=== PATIENT | female | born 1960 | race Caucasian/White ===

== ENCOUNTER 2016-11-17 14:09 | Observation (INO) ==
[2016-11-17] MEDS ORDERED: 0.9 % Sodium Chloride 1,000 ML IVC ONE (14:25)
--- NOTE | 2016-11-17 14:27 | Emergency Department Note ---
Disposition Clinical Impression: Nausea and vomiting in adult, Tachycardia, Metabolic acidosis with respiratory acidosis Disposition: Admitted As Inpatient Condition: Fair Referrals: Jamila Dowd, [employer] [Primary Care Provider] - Forms: ED Satisfaction Letter Time of Disposition: 19:26 ([facility]) Nausea/Vomiting/Diarrhea HPI - General Chief complaint: ED Nausea/Vomiting/Diarrhea Stated complaint: nausea, dizziness Time Seen by Provider: 11/17/16 14:21 Source: patient Mode of arrival: ambulatory Limitations: no limitations Nursing Notes Reviewed: Yes Vital Signs Reviewed: Yes - History of Present Illness HPI Narrative: She is having abdominal pain patient states that she has been unable to urinate she has drank at least 6-8 bottles of water today and unable to urinate except for just a few dribbles she denies any blurred vision double vision states that she is currently being monitored by her family physician for liver disease check her labs regularly she denies any fevers or chills states that she just tired feels that she is breathing 100 miles a minute states that she has had no calf pain or tenderness no rash lesions no swelling no edema in the legs just is very difficult to describe how she feels Pt Subjective Complaint: nausea, vomiting, abdominal pain Onset (ago): day(s) Associated Abdominal Pain: Yes If pain, Location of pain: diffuse Severity: moderate Severity scale (1-10): 5 Quality: cramping Consistency: constant Improves with: nothing Worsens with: nonthing Associated symptoms: Reports: myalgias, loss of appetite, malaise, nausea/ vomiting, dysuria, shortness of breath, weakness. Denies: chest pain, cough, diaphoresis, fever/chills, headaches, rash, syncope - Related Data Home Medications Medication Instructions Recorded Confirmed Multivitamin with Minerals 1 each PO DAILY 11/22/15 11/17/16 [Myvitalife] Allergies Allergy/AdvReac Type Severity Reaction Status Date / Time No Known Allergies Allergy Verified 11/22/15 08:27 All systems ED: reviewed and negative except as stated. Constitutional: Reports: weakness. Denies: fever, chills Eyes: Denies: eye pain, eye discharge ENT ED: Denies: ear pain, throat pain, dental pain Cardiovascular: Denies: chest pain, palpitations Respiratory: Reports: dyspnea. Denies: cough Gastrointestinal: Reports: abdominal pain, nausea, vomiting Genitourinary: Reports: urgency, frequency. Denies: dysuria, dyspareunia Musculoskeletal: Denies: back pain, neck pain, joint swelling Integumentary: Denies: rash Neurological: Denies: headache Psychiatric: Reports: anxiety Endocrine: Reports: fatigue, polydipsia, polyuria Hematological/Lymphatic: Denies: easy bleeding Allergic/Immunologic: Denies: facial swelling Past Medical History - Past Medical History Attestation: Yes The following information was validated with the patient. Source: patient, nursing notes reviewed Medical history: Reports: hyperlipidemia Surgical history: Reports: , other Psychiatric history: Reports: depression - Social History Smoking Status: Former smoker Smokeless Tobacco Status: No Alcohol use: Reports: none Drug use: Reports: none Physical Exam - General Limitations: no limitations General appearance: alert, in no apparent distress, anxious - Head Head exam: atraumatic, normocephalic, normal inspection - Eye Eye exam: Present: normal appearance, PERRL, EOMI - ENT ENT exam: normal exam, normal oropharynx, mucous membranes moist, normal external ear exam - Neck Neck exam: Present: normal inspection, full ROM, trachea midline - Chest Chest inspection: Present: normal inspection, symmetric chest wall rise - Respiratory Respiratory exam: Present: normal lung sounds bilaterally - Cardiovascular Cardiovascular exam: Present: tachycardia - Abdominal Exam Abdominal exam: Present: soft, tenderness, normal bowel sounds, hyperactive bowel sounds. Absent: mass, pulsatile mass - Extremities Exam Extremities exam: Present: normal inspection, full ROM, normal capillary refill. Absent: tenderness - Expanded Lower Extremity Exam Neurovascular/Tendon exam: Present: normal capillary refill, normal fine/light touch - Back Exam Back exam: Present: normal inspection, full ROM. Absent: muscle spasm - Neurological Exam Neurological exam: Present: alert, oriented X3, CN II-XII intact, normal gait - Psychiatric Psychiatric exam: Present: normal affect, normal mood, anxious (at times) - Skin Skin exam: Present: warm, dry, intact, normal color Course Course Narrative: She was seen and examined patient was given IV fluids to hydrate despite this patient still remained tachycardic considerations do include that potential of sepsis but also patient's received IV fluid hydration as well as antibiotics for underlying UTI patient be admitted surgeon for further care management and treatment cussed at length with Dr. Shi - Reevaluation(s) Reevaluation #1: Patient's abdominal pain was relieved with Mejias catheter placement Vital Signs Temperature 97.7 F 11/17/16 14:11 Pulse Rate 127 11/17/16 14:11 Respiratory Rate 20 11/17/16 14:11 Blood Pressure 160/75 11/17/16 14:11 O2 Sat by Pulse Oximetry 98 11/17/16 14:11 Temperature 97.7 F 11/17/16 14:11 Pulse Rate 124 11/17/16 17:23 Respiratory Rate 22 11/17/16 17:23 Blood Pressure 145/80 11/17/16 17:23 O2 Sat by Pulse Oximetry 99 11/17/16 17:23 Oxygen Delivery Oxygen Delivery Room Air Nausea/Vomiting/Diarrhea - Medical Records Medical records reviewed: Yes I reviewed the patient's medical records. - Lab Data Lab results reviewed: Yes I reviewed the patient's lab results. Result diagrams: 11/17/16 14:31 11/17/16 14:31 Lab Results 11/17/16 11/17/16 11/17/16 Range/Units 14:31 14:31 14:31 WBC 9.7 (4.3-11.1) K/mcL RBC 3.91 (3.82-4.97) M/mcL Hgb 14.6 (11.5-15.4) g/dL Hct 43.2 (35.3-44.9) % MCV 110.5 H (83.0-100.0) fL MCH 37.3 H (28.0-33.3) pg MCHC 33.8 (31.6-35.5) g/dL RDW 13.9 (11.5-14.5) % Plt Count 147 (140-400) K/mcL MPV 11.2 (9.4-12.4) fL Immature Gran % 1.0 (0-4) % Seg Neutrophils % 83.6 % Lymphocytes % 8.3 % Monocytes % 6.7 % Eosinophils % 0.0 % Basophils % 0.4 % Neutrophils # 8.1 (1.6-8.9) K/mcL Lymphocytes # 0.8 (0.6-4.6) K/mcL Monocytes # 0.7 (0.0-1.3) K/mcL Eosinophils # 0.0 (0.0-0.6) K/mcL Basophils # 0.0 (0.0-0.2) K/mcL Nucleated RBCs/100 WBC 1.0 H (0) /100 WBC Macrocytosis Present A (Not Present) PT (9.4-12.1) Seconds INR APTT 24.4 L (26.0-36.0) Seconds ABG pH (7.32-7.45) pH Units ABG pCO2 (35-45) mmHg ABG pO2 (85-104) mmHg ABG HCO3 (21-27) mEQ/L ABG Total CO2 (20-26) mEq/L ABG O2 Saturation (95-98) % ABG Base Excess (-2.0 to 3.0) mEq/L Inspired O2 % Sodium 134 L (136-145) mEq/L Potassium 5.4 H (3.5-4.5) mEq/L Chloride 92 L (98-109) mEq/L Carbon Dioxide < 5 L* (19-29) mEq/L BUN 20 (7-20) mg/dL Creatinine 1.31 H (0.57-1.11) mg/dL Est GFR ( Amer) 51 L (> 60) Est GFR (Non-Af Amer) 42 L (> 60) BUN/Creatinine Ratio 15 (6-26) Glucose 299 H (70-99) mg/dL Calculated Osmolality 292 (280-300) Calcium 8.9 (8.6-10.8) mg/dL Total Bilirubin 1.6 H (0.2-1.2) mg/dL AST 64 H (5-34) Units/L ALT 32 (0-55) Units/L Alkaline Phosphatase 76 (38-126) Units/L Troponin I (0-0.03) ng/mL Serum Total Protein 9.1 H (6.0-8.3) g/dL Albumin 4.4 (3.5-5.0) g/dL Globulin 4.7 H (2.4-3.5) g/dL Albumin/Globulin Ratio 0.9 L (1.1-2.2) Beta-Hydroxybutyric Acd (0.02-0.27) mmol/L TSH (0.350-4.840) mcIU/mL Urine Color (Yellow) Urine Clarity (Clear) Urine pH (5.0-8.0) pH Units Ur Specific [place] (1.010-1.025) Urine Protein (Neg-Trace) mg/dL Urine Glucose (UA) (Normal) mg/dL Urine Ketones (Negative) mg/dL Urine Blood (Negative) Urine Nitrite (Negative) Urine Bilirubin (Negative) Urine Urobilinogen (Normal) mg/dL Ur Leukocyte Esterase (Negative) Urine Microscopic RBC (0-3) per hpf Urine Microscopic WBC (0-3) per hpf Ur Squamous Epith Cells (None-Few) per lpf Urine Bacteria (None-Few) per hpf Hyaline Casts (None-Few) per lpf Urine Mucus (Few) Ur Culture Indicated? (NO) 11/17/16 11/17/16 11/17/16 Range/Units 14:31 14:31 14:31 WBC (4.3-11.1) K/mcL RBC (3.82-4.97) M/mcL Hgb (11.5-15.4) g/dL Hct (35.3-44.9) % MCV (83.0-100.0) fL MCH (28.0-33.3) pg MCHC (31.6-35.5) g/dL RDW (11.5-14.5) % Plt Count (140-400) K/mcL MPV (9.4-12.4) fL Immature Gran % (0-4) % Seg Neutrophils % % Lymphocytes % % Monocytes % % Eosinophils % % Basophils % % Neutrophils # (1.6-8.9) K/mcL Lymphocytes # (0.6-4.6) K/mcL Monocytes # (0.0-1.3) K/mcL Eosinophils # (0.0-0.6) K/mcL Basophils # (0.0-0.2) K/mcL Nucleated RBCs/100 WBC (0) /100 WBC Macrocytosis (Not Present) PT 11.4 (9.4-12.1) Seconds INR 1.1 APTT (26.0-36.0) Seconds ABG pH (7.32-7.45) pH Units ABG pCO2 (35-45) mmHg ABG pO2 (85-104) mmHg ABG HCO3 (21-27) mEQ/L ABG Total CO2 (20-26) mEq/L ABG O2 Saturation (95-98) % ABG Base Excess (-2.0 to 3.0) mEq/L Inspired O2 % Sodium (136-145) mEq/L Potassium (3.5-4.5) mEq/L Chloride (98-109) mEq/L Carbon Dioxide (19-29) mEq/L BUN (7-20) mg/dL Creatinine (0.57-1.11) mg/dL Est GFR ( Amer) (> 60) Est GFR (Non-Af Amer) (> 60) BUN/Creatinine Ratio (6-26) Glucose (70-99) mg/dL Calculated Osmolality (280-300) Calcium (8.6-10.8) mg/dL Total Bilirubin (0.2-1.2) mg/dL AST (5-34) Units/L ALT (0-55) Units/L Alkaline Phosphatase (38-126) Units/L Troponin I 0.00 (0-0.03) ng/mL Serum Total Protein (6.0-8.3) g/dL Albumin (3.5-5.0) g/dL Globulin (2.4-3.5) g/dL Albumin/Globulin Ratio (1.1-2.2) Beta-Hydroxybutyric Acd (0.02-0.27) mmol/L TSH 0.225 L (0.350-4.840) mcIU/mL Urine Color (Yellow) Urine Clarity (Clear) Urine pH (5.0-8.0) pH Units Ur Specific [place] (1.010-1.025) Urine Protein (Neg-Trace) mg/dL Urine Glucose (UA) (Normal) mg/dL Urine Ketones (Negative) mg/dL Urine Blood (Negative) Urine Nitrite (Negative) Urine Bilirubin (Negative) Urine Urobilinogen (Normal) mg/dL Ur Leukocyte Esterase (Negative) Urine Microscopic RBC (0-3) per hpf Urine Microscopic WBC (0-3) per hpf Ur Squamous Epith Cells (None-Few) per lpf Urine Bacteria (None-Few) per hpf Hyaline Casts (None-Few) per lpf Urine Mucus (Few) Ur Culture Indicated? (NO) 11/17/16 11/17/16 11/17/16 Range/Units 14:45 15:16 16:10 WBC (4.3-11.1) K/mcL RBC (3.82-4.97) M/mcL Hgb (11.5-15.4) g/dL Hct (35.3-44.9) % MCV (83.0-100.0) fL MCH (28.0-33.3) pg MCHC (31.6-35.5) g/dL RDW (11.5-14.5) % Plt Count (140-400) K/mcL MPV (9.4-12.4) fL Immature Gran % (0-4) % Seg Neutrophils % % Lymphocytes % % Monocytes % % Eosinophils % % Basophils % % Neutrophils # (1.6-8.9) K/mcL Lymphocytes # (0.6-4.6) K/mcL Monocytes # (0.0-1.3) K/mcL Eosinophils # (0.0-0.6) K/mcL Basophils # (0.0-0.2) K/mcL Nucleated RBCs/100 WBC (0) /100 WBC Macrocytosis (Not Present) PT (9.4-12.1) Seconds INR APTT (26.0-36.0) Seconds ABG pH 7.27 L (7.32-7.45) pH Units ABG pCO2 14 L* (35-45) mmHg ABG pO2 113 H (85-104) mmHg ABG HCO3 6.6 L (21-27) mEQ/L ABG Total CO2 7.0 L (20-26) mEq/L ABG O2 Saturation 98 (95-98) % ABG Base Excess -20.4 L (-2.0 to 3.0) mEq/L Inspired O2 21 % Sodium (136-145) mEq/L Potassium (3.5-4.5) mEq/L Chloride (98-109) mEq/L Carbon Dioxide (19-29) mEq/L BUN (7-20) mg/dL Creatinine (0.57-1.11) mg/dL Est GFR ( Amer) (> 60) Est GFR (Non-Af Amer) (> 60) BUN/Creatinine Ratio (6-26) Glucose (70-99) mg/dL Calculated Osmolality (280-300) Calcium (8.6-10.8) mg/dL Total Bilirubin (0.2-1.2) mg/dL AST (5-34) Units/L ALT (0-55) Units/L Alkaline Phosphatase (38-126) Units/L Troponin I (0-0.03) ng/mL Serum Total Protein (6.0-8.3) g/dL Albumin (3.5-5.0) g/dL Globulin (2.4-3.5) g/dL Albumin/Globulin Ratio (1.1-2.2) Beta-Hydroxybutyric Acd > 2.00 H (0.02-0.27) mmol/L TSH (0.350-4.840) mcIU/mL Urine Color Yellow (Yellow) Urine Clarity Slightly Cloudy A (Clear) Urine pH 5.5 (5.0-8.0) pH Units Ur Specific [place] 1.025 (1.010-1.025) Urine Protein Trace (Neg-Trace) mg/dL Urine Glucose (UA) Normal (Normal) mg/dL Urine Ketones 40 H (Negative) mg/dL Urine Blood Negative (Negative) Urine Nitrite Negative (Negative) Urine Bilirubin Negative (Negative) Urine Urobilinogen Normal (Normal) mg/dL Ur Leukocyte Esterase Large H (Negative) Urine Microscopic RBC 0-3 (0-3) per hpf Urine Microscopic WBC 50-100 H (0-3) per hpf Ur Squamous Epith Cells Few (None-Few) per lpf Urine Bacteria Few (None-Few) per hpf Hyaline Casts Few (None-Few) per lpf Urine Mucus Moderate H (Few) Ur Culture Indicated? YES A (NO) - Radiology Data Radiology results reviewed: Yes I reviewed the patient's radiology results. ITS Impressions Abdomen/Pelvis CT 11/17/16 14:25 IMPRESSION: 3 cm cyst seen within the right lobe of the liver Benign adenoma seen within the left adrenal gland. Small periumbilical hernia Mild distention of the stomach. No acute intra-abdominal or pelvic process seen. D/ / Terrell Trujillo MD / Terrell Trujillo MD Interpreting Provider: Terrell Trujillo MD Chest X-Ray 11/17/16 14:25 IMPRESSION: No acute cardiopulmonary disease D/ / Vince Chaudhari MD / Vince Chaudhari MD Interpreting Provider: Vince Chaudhari MD Impressions Abdomen/Pelvis CT 11/17/16 14:25 IMPRESSION: A 3 cm cyst seen within the right lobe of the liver. Benign adenoma is seen within the left adrenal gland. Small periumbilical hernia. Mild distention of the stomach. No acute intra-abdominal or pelvic process seen. D/ / 11/17/2016 15:59:18 Terrell Trujillo MD / joshua Interpreting Provider: Terrell Trujillo MD Chest X-Ray 11/17/16 14:25 IMPRESSION: No acute cardiopulmonary disease D/ / Vince Chaudhari MD / Vince Chaudhari MD Interpreting Provider: Vince Chaudhari MD Chest CTA 11/17/16 18:00 IMPRESSION: No evidence of pulmonary embolism or acute pulmonary abnormality. Incidentally noted hepatic steatosis, left adrenal myelolipoma, and mild hiatal hernia. D/ / Francisco Moore MD / Francisco Moore MD Interpreting Provider: Francisco Moore MD - EKG Data EKG attestation: Yes I reviewed and interpreted this EKG. EKG results narrative: Sinus tach rate 126. 159 QRS 95 QT 305 axis -4 Critical Care Time Critical Care Time: Yes Total Critical Care Time: 35 Attestation: Critical care performed: 35 min patient was noted to be in respiratory acidosis which could be the result of either dehydration diabetic ketoacidosis since that deftly has an underlying component of metabolic issue which she has modified her respiratory rate try to correct she showing evidence that she is dehydrated that she denies being a diabetic and almost gives the appearance of a diabetic new onset in addition she has had liver failure which could also be contributing factor for this both a combination of a respiratory metabolic acidosis which she is not able to compensate for she stated that she had drank a bottle of water today but this did not seem to have been alleviated the bicarbonate effect on the patient discussion with Dr. Shi explaining all the lab results and then making arrangements for admission to his services d-dimer was done which was elevated PE study was also done to follow up to make sure no underlying pulmonary emboli Time is exclusive of separately billable procedures. Time includes: direct patient care, patient reassessment, coordination of patient care, interpretation of data (laboratory data, radiology data, and respiratory data), review of patient's medical records, medical consultation and documentation of patient care. Procedures included in critical care time: Procedures excluded from critical care time:
[2016-11-17 14:40] LABS: Basophils % 0.4 %; Hematocrit 43.2 % (35.3-44.9); Hemoglobin 14.6 g/dL (11.5-15.4); Lymphocytes # 0.8 K/mcL (0.6-4.6); Lymphocytes % 8.3 %; Mean Corpuscular HGB Conc 33.8 g/dL (31.6-35.5); Mean Corpuscular Hemoglobin 37.3 pg (28.0-33.3); Mean Corpuscular Volume 110.5 fL (83.0-100.0); Mean Platelet Volume 11.2 fL (9.4-12.4); Monocytes # 0.7 K/mcL (0.0-1.3); Monocytes % 6.7 %; Neutrophils # 8.1 K/mcL (1.6-8.9); Platelet Count 147 K/mcL (140-400); Red Blood Count 3.91 M/mcL (3.82-4.97); Red Cell Distribution Width 13.9 % (11.5-14.5); Segmented Neutrophils % 83.6 %
[2016-11-17 14:51] LABS: Bilirubin,Urine Negative (Negative); Blood,Urine Negative (Negative); Clarity,Urine Slightly Cloudy (Clear); Color,Urine Yellow (Yellow); Glucose,Urine (UA) Normal (Normal); Ketones,Urine 40 mg/dL (Negative); Leukocyte Esterase,Urine Large (Negative); Nitrite,Urine Negative (Negative); PH,Urine 5.5 pH Units (5.0-8.0); Protein,Urine Trace mg/dL (Neg-Trace); Specific Gravity,Urine 1.025 (1.010-1.025); Urobilinogen,Urine Normal (Normal)
[2016-11-17 14:55] LABS: INR 1.1; Prothrombin Time 11.4 Seconds (9.4-12.1)
[2016-11-17 14:59] LABS: Alanine Aminotransferase 32 Units/L (0-55); Albumin 4.4 g/dL (3.5-5.0); Albumin/Globulin Ratio 0.9 (1.1-2.2); Alkaline Phosphatase 76 Units/L (38-126); Aspartate Amino Transferase 64 Units/L (5-34); BUN/Creatinine Ratio 15 (6-26); Bilirubin,Total 1.6 mg/dL (0.2-1.2); Blood Urea Nitrogen 20 mg/dL (7-20); Calcium 8.9 mg/dL (8.6-10.8); Chloride 92 mEq/L (98-109); Globulin 4.7 g/dL (2.4-3.5); Glucose 299 mg/dL (70-99); Osmolality,Calculated 292 (280-300); Potassium 5.4 mEq/L (3.5-4.5); Sodium 134 mEq/L (136-145); Total Protein 9.1 g/dL (6.0-8.3); eGFR For African Americans 51 (> 60); eGFR For Non-African Americans 42 (> 60)
[2016-11-17 15:10] LABS: Bacteria,Urine Few per hpf (None-Few); Hyaline Casts,Urine Few per lpf (None-Few); Mucus,Urine Moderate (Few); RBC,Urine 0-3 per hpf (0-3); Squamous Epithelial Cell,Urine Few per lpf (None-Few); WBC,Urine 50-100 per hpf (0-3)
[2016-11-17 15:12] LABS: Macrocytosis Present (Not Present)
[2016-11-17 16:08] LABS: Carbon Dioxide < 5 mEq/L (19-29)
--- NOTE | 2016-11-17 16:31 | Electrocardiograph Report ---
[place] [id number] Test Date: 2016-11-17 Pat Name: Madison Jensen Department: [id number] Room: Gender: F Receiver/Laborer: Patric : 1960 Requested By: Rema Phelps Order Number: [id number] Reading MD: Stephen Grubbs MD Measurements Intervals [place] Rate: 126 P: 44 MN: 159 QRS: -4 QRSD: 95 T: 40 QT: 305 QTc: 379 Interpretive Statements SINUS TACHYCARDIA Electronically Signed On 11-17-2016 16:30:16 EDT by Stephen Grubbs MD
[2016-11-17 16:49] LABS: ABG HCO3 6.6 mEQ/L (21-27); ABG PCO2 14 mmHg (35-45); ABG PH 7.27 pH Units (7.32-7.45); ABG PO2 113 mmHg (85-104)
[2016-11-17 16:50] LABS: ABG Base Excess -20.4 mEq/L (-2.0 to 3.0); ABG Oxygen Saturation 98 % (95-98); Blood Gas FiO2 21 %
[2016-11-17 18:03] LABS: Amphetamine Screen,Urine Negative ng/mL (Cutoff=1000); Barbiturate Screen,Urine Negative ng/mL (Cutoff=200); Benzodiazepines Screen,Urine Negative ng/mL (Cutoff=200); Cannabinoid Screen,Urine Negative ng/mL (Cutoff = 50); Cocaine Screen,Urine Negative ng/mL (Cutoff= 300); Opiate Screen,Urine Negative ng/mL (Cutoff=300); Phencyclidine Screen,Urine Negative ng/mL (Cutoff=25)
[2016-11-17] MEDS ORDERED: 0.9 % Sodium Chloride 1,000 ML ONE ×2 (19:29→20:39)
[2016-11-17] MEDS ORDERED: *HR* Dextrose 50 % in Water (Syg) 50 ML SYRINGE IVP PRN (20:39)
[2016-11-17] MEDS ORDERED: Ondansetron 4 MG/2 ML VIAL IVP PRN (20:39)
[2016-11-17] MEDS ORDERED: D5% in Water 1,000 ML IVC PRN (20:39)
[2016-11-17] MEDS ORDERED: Dextrose Gel 15 GM PO PRN ×2 (20:39)
[2016-11-17] MEDS ORDERED: 0.9 % Sodium Chloride 1,000 ML IVC SCH (20:39)
[2016-11-17] MEDS ORDERED: Naloxone 0.4 MG/ML INJ IVP PRN (20:39)
[2016-11-17] MEDS: 0.9 % Sodium Chloride 1,000 ML IVC SCH ×2 (21:08→21:10)
[2016-11-18 06:11] LABS: Basophils % 0.2 %; Hematocrit 33.9 % (35.3-44.9); Hemoglobin 11.9 g/dL (11.5-15.4); Immature Granulocytes % 0.2 % (0-4); Lymphocytes % 20.5 %; Mean Corpuscular HGB Conc 35.1 g/dL (31.6-35.5); Mean Corpuscular Hemoglobin 37.1 pg (28.0-33.3); Mean Corpuscular Volume 105.6 fL (83.0-100.0); Mean Platelet Volume 9.7 fL (9.4-12.4); Monocytes # 0.4 K/mcL (0.0-1.3); Neutrophils # 3.4 K/mcL (1.6-8.9); Red Blood Count 3.21 M/mcL (3.82-4.97); Red Cell Distribution Width 13.6 % (11.5-14.5); Segmented Neutrophils % 70.1 %
[2016-11-18 06:19] LABS: Prothrombin Time 10.8 Seconds (9.4-12.1)
[2016-11-18 06:20] LABS: Activated Partial Thrombo Time 23.2 Seconds (26.0-36.0)
[2016-11-18 06:29] LABS: Platelet Count 89 K/mcL (140-400)
[2016-11-18 06:32] LABS: BUN/Creatinine Ratio 12 (6-26); Blood Urea Nitrogen 10 mg/dL (7-20); Calcium 8.1 mg/dL (8.6-10.8); Carbon Dioxide 16 mEq/L (19-29); Chloride 103 mEq/L (98-109); Glucose 98 mg/dL (70-99); Osmolality,Calculated 279 (280-300); Potassium 4.1 mEq/L (3.5-4.5); Sodium 135 mEq/L (136-145); eGFR For African Americans > 60 (> 60); eGFR For Non-African Americans > 60 (> 60)
[2016-11-18 06:45] LABS: Platelet Estimate Decreased (Normal)
[2016-11-18] MEDS: Insulin LISPRO 300 UNITS/3 ML VIAL SQ SCH ×3 (09:11→17:38)
[2016-11-18] MEDS: Multivit/Ca/Min/Fe/FA 1 TAB TABLET PO SCH (09:13)
--- NOTE | 2016-11-18 12:42 | Internal Med History&Physical ---
Date of Encounter: 11/18/16 Time of Encounter: 12:15 Assessment and Plan (1) Metabolic acidosis Current visit: No Status: Resolved Increased anion gap possibly secondary to DKA. She has been given IV fluids and insulin coverage. Her acidosis has significantly improved. We will recheck labs in a.m. Anticipate discharge home tomorrow. (2) Acute renal failure Current visit: No Status: Acute IV fluids have been given with improvement in labs today. Continue present management and recheck labs in a.m. Qualifiers: Acute renal failure type: unspecified Qualified Code(s): N17.9 - Acute kidney failure, unspecified (3) UTI (urinary tract infection) Current visit: No Status: Resolved She was given Rocephin in the emergency room. Continue and add lactobacillus. Qualifiers: Urinary tract infection type: site unspecified Hematuria presence: without hematuria Qualified Code(s): N39.0 - Urinary tract infection, site not specified (4) Thrombocytopenia Current visit: No Status: Chronic We will monitor platelet count. Internal Medicine - H&P: HPI Chief complaint: Abdominal pain Admitted From: Home Plans for Post Hospital Care: Home History of present illness: Ms. Jensen is a 55 year old female who came to emergency room stating she had onset of abdominal pain at work approximately 0800. She describes it as a cramping and burning discomfort in her lower abdominal area. She felt her heart was beating rapidly and felt dyspneic. She was referred to medical services at her place of work. She was recommended to come to [facility] emergency room. She was evaluated and found to have probable DKA with UTI. She was admitted to [facility] floor for ongoing care needs. She states she has had previous abdominal pain approximately twice a year for several years. Her most recent episode was approximately 2 months ago. She claims she had a colonoscopy approximately 5-6 years ago which was unremarkable. She denies disorders of her liver or exocrine pancreas. She has had UTIs in the past. She denies other kidney or bladder disorders. She had acute renal insufficiency which resolved during her November 2015 [facility] hospitalization. She had urinary retention documented in emergency room with approximately 1500 mL urine output when Mejias catheter was inserted. She denies a diagnosis of diabetes. She has history of hyperlipidemia but no known thyroid disease. Past Med Surg Social Fam HX - Past Medical History Medical history: hyperlipidemia Psychiatric history: depression - Past Surgical History Surgical History: , other - Social History Smoking Status: Former smoker Smokeless Tobacco Status: No Alcohol use: none Drug use: none - Family History Father Living Status: Hx Family Cardiac Disorders: Yes (stents placed) Sister Living Status: Hx Family Cancer: Yes (breast cancer) Brother Living Status: Still Living Hx Family Cancer: Yes (testicular cancer) Internal Medicine - H&P: Meds Multivitamin with Minerals [Myvitalife] 1 each PO DAILY 11/22/15 [History] Allergies No Known Allergies Allergy (Verified 11/22/15 08:27) All Systems PM: A 10-system review of systems was performed and is negative for pertinent findings except as documented above in the HPI. Review of systems: Gen.: Her weight has been stable at approximate 79 kg since November 2015 [facility] hospitalization. Cardiovascular: She denies hypertension AK heart failure angina DVT or pulmonary embolus Respiratory: She smoked for approximately 3 years in early adulthood. She denies known chronic lung disease. She states she has had dyspnea on exertion the past 2 days but has had essentially no cough. GI: As per history of present illness : As per history of present illness Neurologic: She denies large distribution strokes or seizures Endocrine: As per history of present illness Hematology/oncology: She has chronic macrocytosis and saw a engine watchman/ oncologist July 2013. No etiology was found. She denies internal malignancies Psychiatric: She has feelings of depression but does not take medication. She denies other mental health issues Musculoskeletal: She denies arthritis gout or other bone joint or muscle disorders. - Constitutional Vitals: Temp Pulse Resp BP Pulse Ox 98.7 F 90 17 109/72 97 11/18/16 11:04 11/18/16 11:04 11/18/16 11:04 11/18/16 11:04 11/18/16 11:04 Exam: Gen.: She is a well-developed well-nourished female who appears in no acute distress at present time HEENT: Head is atraumatic and normocephalic. Eyes: EOMI. There is no scleral icterus. Mouth: Mucosa is moist. Neck: Supple and nontender. There is no thyromegaly or adenopathy noted. Heart: Regular rate 108/m. No murmurs or gallops are heard Lungs: No wheezes or crackles heard. Abdomen: Soft and nontender. No masses or guarding are noted. Extremities: There is no cyanosis edema or clubbing noted. Dorsalis pedis and posttibial pulses are 1-2 over 2 bilaterally. Neurologic: Mental status: She is talkative and a good historian. Cranial nerves: Smile is symmetric. Forehead wrinkles bilaterally. Tongue protrudes midline. EOMI. Motor: There is no pronator drift. Cerebellar: Finger to nose is intact bilaterally. Skin: Warm and dry Internal Med - H&P Results - Labs CBC & Chem 7: 11/18/16 05:23 11/18/16 05:23 Labs: Short CBC 11/18/16 Range/Units 05:23 WBC 4.9 (4.3-11.1) K/mcL Hgb 11.9 D (11.5-15.4) g/dL Hct 33.9 L (35.3-44.9) % Plt Count 89 L (140-400) K/mcL Neutrophils # 3.4 (1.6-8.9) K/mcL BMP 11/18/16 05:23 Sodium 135 L Potassium 4.1 D Chloride 103 Carbon Dioxide 16 L BUN 10 D Creatinine 0.84 Glucose 98 Calcium 8.1 L
[2016-11-18] MEDS: 0.9 % Sodium Chloride 1,000 ML IVC SCH (15:05)
[2016-11-18] MEDS: Lactobacillus 1 EACH CAP.SPRINK PO SCH (21:19)
[2016-11-19 07:15] VITALS: BP 145/94
[2016-11-19] MEDS: 0.9 % Sodium Chloride 1,000 ML IVC SCH (07:33)
[2016-11-19 07:39] LABS: Basophils % 0.6 %; Eosinophils % 0.9 %; Hematocrit 33.6 % (35.3-44.9); Hemoglobin 11.9 g/dL (11.5-15.4); Immature Granulocytes % 0.3 % (0-4); Lymphocytes # 1.3 K/mcL (0.6-4.6); Lymphocytes % 37.7 %; Mean Corpuscular HGB Conc 35.4 g/dL (31.6-35.5); Mean Corpuscular Hemoglobin 36.6 pg (28.0-33.3); Mean Corpuscular Volume 103.4 fL (83.0-100.0); Mean Platelet Volume 10.1 fL (9.4-12.4); Monocytes # 0.2 K/mcL (0.0-1.3); Monocytes % 6.9 %; Neutrophils # 1.9 K/mcL (1.6-8.9); Red Blood Count 3.25 M/mcL (3.82-4.97); Red Cell Distribution Width 13.7 % (11.5-14.5); Segmented Neutrophils % 53.6 %
[2016-11-19 07:43] LABS: Platelet Count 67 K/mcL (140-400)
[2016-11-19] MEDS: Insulin LISPRO 300 UNITS/3 ML VIAL SQ SCH (08:10)
[2016-11-19] MEDS: Lactobacillus 1 EACH CAP.SPRINK PO SCH (08:42)
[2016-11-19] MEDS: Multivit/Ca/Min/Fe/FA 1 TAB TABLET PO SCH (08:42)
[2016-11-19 09:28] LABS: BUN/Creatinine Ratio 7 (6-26); Calcium 8.5 mg/dL (8.6-10.8); Carbon Dioxide 22 mEq/L (19-29); Chloride 105 mEq/L (98-109); Glucose 113 mg/dL (70-99); Magnesium 1.9 mg/dL (1.6-2.6); Osmolality,Calculated 286 (280-300); Sodium 139 mEq/L (136-145); eGFR For African Americans > 60 (> 60); eGFR For Non-African Americans > 60 (> 60)
[2016-11-19 09:32] LABS: Blood Urea Nitrogen 4 mg/dL (7-20)
[2016-11-19 10:52] LABS: Beta-Hydroxybutyric Acid 0.66 mmol/L (0.02-0.27)
--- NOTE | 2016-11-19 11:07 | Discharge Summary ---
Date of Encounter: 11/19/16 Time of Encounter: 10:50 - Discharge Diagnosis (1) Metabolic acidosis Priority: Primary Status: Resolved (2) Acute renal failure Priority: Secondary Status: Resolved Qualifiers: Acute renal failure type: unspecified Qualified Code(s): N17.9 - Acute kidney failure, unspecified (3) UTI (urinary tract infection) Priority: Secondary Status: Resolved Qualifiers: Urinary tract infection type: site unspecified Hematuria presence: without hematuria Qualified Code(s): N39.0 - Urinary tract infection, site not specified (4) Thrombocytopenia Priority: Secondary Status: Chronic - Discharge Medications Home Medications: Multivitamin with Minerals [Myvitalife] 1 each PO DAILY 11/22/15 [History] Allergies/Adverse Reactions: Allergies No Known Allergies Allergy (Verified 11/22/15 08:27) Date of admission: 11/17/16 19:41 Primary care physician: Jamila Dowd CNP - Patient Status Disposition: Home, Self-Care Condition: Fair Functional capacity at discharge: independent ambulation Overall status at discharge: patient is progressing back to baseline - Discharge Instructions Follow Up With: Jamila Dowd CNP [Primary Care Provider] - 1 week - Diet and Activity Activity: resume usual activities as tolerated Diet: advance to your usual diet Hospital course: Ms. Jensen is a 55 year old female who came to emergency room stating she had onset of abdominal pain at work approximately 0800. She describes it as a cramping and burning discomfort in her lower abdominal area. She felt her heart was beating rapidly and felt dyspneic. She was referred to medical services at her place of work. She was recommended to come to [facility] emergency room. She was evaluated and found to have probable DKA with UTI. She was admitted to [facility] for ongoing care needs. Initial orders were written by the emergency room physician. I saw her on November 18 and performed the history and physical. She was given IV fluids and insulin coverage for Accu-Cheks before meals and at bedtime. Her acidosis resolved by the day of discharge. Her ketosis significantly improved. I reviewed her past labs and saw hemoglobin A1c 10/01/2016 was satisfactory at 5.0%. Her azotemia resolved by the day of discharge. She was given 2 doses of Rocephin and her left shift on WBC differential resolved by the day of discharge. When I saw her on November 19 she felt stable for discharge home. She will follow with her PCP Jamila Dowd CNP within 1 week. Further workup for thrombocytopenia and ongoing monitoring for DM2 can done by her PCP. Her potassium decreased to 3.0 on the day of discharge with IV fluids. She was given supplemental potassium prior to discharge. Her PCP can monitor labs as needed. - Time Spent with Patient Total time spent providing and/or coordinating discharge services: - Constitutional Vitals: Temp Pulse Resp BP Pulse Ox 98.5 F 70 16 145/94 95 11/19/16 07:14 11/19/16 07:14 11/19/16 07:14 11/19/16 07:14 11/19/16 09:00
== END 2016-11-19 12:15 | disposition home or self-care (01) ==
LOC: INPPIK 14:09 → EMEROOPIK 14:09 → INPPIK 20:17
PROVIDERS: ADMIT Internal Medicine; ATTEND Internal Medicine